=== PATIENT | male | born 1990 | race Caucasian/White ===

== ENCOUNTER 2016-09-24 16:01 | Emergency (ER) | payer BC ==
[2016-09-24] MEDS ORDERED: Sodium Chloride 0.9% 1,000 ML IV ONE (16:50)
--- NOTE | 2016-09-24 16:58 | EDM.PDOC ---
ED HPI GENERAL MEDICAL PROBLEM - General Chief Complaint: ENT Problem Stated Complaint: PAIN/SWOLLEN THROAT Time Seen by Provider: 09/24/16 16:15 Source of Information: Reports: Patient - History of Present Illness INITIAL COMMENTS - FREE TEXT/NARRATIVE: HISTORY AND PHYSICAL: History of present illness: [Patient presents to the emergency room today with complaints of throat redness for 2 weeks. States he was seen at a clinic and was prescribed clindamycin for strep throat, at that time he did have some mild throat pain, redness, and swelling. Has been on clindamycin for 10 days now and is pain-free. Patient concerned today because he still has redness to the back of his throat, "my uvula does whatever it wants", and white "spots" to the roof of his mouth. Patient reports some mild general abdominal discomfort when hitting out of bed and fatigue. Denies any fevers, chills, or back pain.] Review of systems: As per history of present illness and below otherwise all systems reviewed and negative. Past medical history: As per history of present illness and as reviewed below otherwise noncontributory. Surgical history: As per history of present illness and as reviewed below otherwise noncontributory. Social history: No reported history of drug or alcohol abuse. Family history: As per history of present illness and as reviewed below otherwise noncontributory. Physical exam: Gen.: Nontoxic appearing 25-year-old male. Appropriate for age. HEENT: Atraumatic, normocephalic, pupils reactive, negative for conjunctival pallor or scleral icterus, mucous membranes moist. Tonsils present billaterally with erythema, grade 2 tonsillar swelling without exudate. No lymphadenopathy. Neck supple, nontender, trachea midline. Lungs: Clear to auscultation, breath sounds equal bilaterally, chest nontender. Heart: S1S2, regular, negative for clicks, rubs, or JVD. Abdomen: Soft, nondistended, nontender. Negative for masses or hepatosplenomegaly. Negative for costovertebral tenderness. Extremities: Atraumatic. Neurovascular unremarkable. Neuro: Awake, alert, oriented. Motor and sensory unremarkable throughout. Exam nonfocal. Diagnostics: [Rapid strep Monospot] Therapeutics: [1 L of normal saline IV - hydrate] Impression: [Viral pharyngitis] Plan: [Strep and mono are negative. Throat culture is pending. Discussed with patient that his throat discomfort is likely viral in nature. Recommend warm saltwater gargles if it should become painful. Tylenol and ibuprofen as needed. Patient's heart rate is mid 80s following 1 L of fluids. Encouraged him to push fluids get plenty of rest and avoid dehydration. Recommend he establish care with local PCP in follow-up in the next 2-3 days.] Definitive disposition and diagnosis as appropriate pending reevaluation and review of above. Onset: Other (2 weeks ago) Duration: Week(s): (2) Location: Reports: Neck - Related Data Allergies Allergy/AdvReac Type Severity Reaction Status Date / Time Penicillins Allergy Hives Verified 05/25/15 22:21 Home Meds: Home Meds . [No Known Home Meds] 05/25/15 [History] Past Medical History - Infectious Disease History Infectious Disease History: Reports: Chicken Pox, Shingles - Past Surgical History Musculoskeletal Surgical History: Reports: Other (See Below) Social & Family History - Family History Family Medical History: Noncontributory - Tobacco Use Smoking Status *Q: Current Every Day Smoker Years of Tobacco use: 9 Packs/Tins Daily: 0.5 - Caffeine Use Caffeine Use: Reports: Coffee, Soda - Recreational Drug Use Recreational Drug Use: No ED ROS ENT - Review of Systems Review Of Systems: ROS reveals no pertinent complaints other than HPI. ED EXAM, ENT - Physical Exam Exam: See Below (See history of present illness) Course - Vital Signs Last Recorded V/S: Last Vital Signs Temp 98.6 F 09/24/16 16:06 Pulse 120 H 09/24/16 16:06 Resp 18 09/24/16 16:06 BP 140/89 09/24/16 16:06 Pulse Ox 96 09/24/16 16:06 - Orders/Labs/Meds Orders: Active Orders 24 hr Category Date Time Status CULTURE STREP A CONFIRMATION [RM] Stat Lab 09/24/16 16:10 Results STREP SCRN A RAPID W CULT CONF [RM] Stat Lab 09/24/16 16:10 Results Sodium Chloride 0.9% [Normal Saline] 1,000 ml Med 09/24/16 16:50 Active IV STAT Medication Orders Sodium Chloride (Normal Saline) 1,000 mls @ 999 mls/hr IV STAT ONE Stop: 09/24/16 17:50 Last Admin: 09/24/16 17:00 Dose: 999 mls/hr Labs: Laboratory Tests 09/24/16 Range/Units 17:00 Monoscreen NEGATIVE (NEG) Meds: Medications Generic Name Dose Route Start Last Admin Trade Name Chong PRN Reason Stop Dose Admin Sodium Chloride 1,000 mls @ 999 mls/hr 09/24/16 16:50 09/24/16 17:00 Normal Saline IV 09/24/16 17:50 999 mls/hr STAT ONE Administration Departure - Departure Time of Disposition: 17:50 Disposition: Home, Self-Care 01 Condition: Good Clinical Impression: Viral pharyngitis - Discharge Information Forms: ED Department Discharge Additional Instructions: The following information is given to patients seen in the emergency department who are being discharged to home. This information is to outline your options for follow-up care. We provide all patients seen in our emergency department with a follow-up referral. The need for follow-up, as well as the timing and circumstances, are variable depending upon the specifics of your emergency department visit. If you don't have a primary care physician on staff, we will provide you with a referral. We always advise you to contact your personal physician following an emergency department visit to inform them of the circumstance of the visit and for follow-up with them and/or the need for any referrals to a consulting specialist. The emergency department will also refer you to a specialist when appropriate. This referral assures that you have the opportunity for follow-up care with a specialist. All of these measure are taken in an effort to provide you with optimal care, which includes your follow-up. Under all circumstances we always encourage you to contact your private physician who remains a resource for coordinating your care. When calling for follow-up care, please make the office aware that this follow-up is from your recent emergency room visit. If for any reason you are refused follow-up, please contact the [facility] emergency department at and asked to speak to the emergency department charge nurse. [address] [id number] Establish care with a local primary care provider or the clinic listed above and follow-up there in 48-72 hours. Quit Smoking. Push fluids to stay well hydrated. Salt water gargles as needed for any throat discomfort. You may also take Tylenol and ibuprofen as needed for throat discomfort. Return to ER as needed as discussed. - My Orders Last 24 Hours: My Active Orders 09/24/16 16:10 CULTURE STREP A CONFIRMATION [RM] Stat STREP SCRN A RAPID W CULT CONF [RM] Stat 09/24/16 16:50 Sodium Chloride 0.9% [Normal Saline] 1,000 ml IV STAT - Assessment/Plan Last 24 Hours: My Active Orders 09/24/16 16:10 CULTURE STREP A CONFIRMATION [RM] Stat STREP SCRN A RAPID W CULT CONF [RM] Stat 09/24/16 16:50 Sodium Chloride 0.9% [Normal Saline] 1,000 ml IV STAT
[2016-09-24 17:49] VITALS: BP 131/64
== END 2016-09-24 18:00 | disposition home or self-care (01) ==
LOC: MW.ED 16:01
DX: J02.8 Acute pharyngitis due to other specified organisms (principal); B97.89 Other viral agents as the cause of diseases classified elsewhere; F17.210 Nicotine dependence, cigarettes, uncomplicated; Z88.0 Allergy status to penicillin
CPT/HCPCS: 36415; 86308; 87081; 87880; 96360; 99283; J7040